=== PATIENT | male | born 1985 | race Caucasian/White ===

== ENCOUNTER 2021-03-06 00:54 | Inpatient (IN) | payer BC ==
[2021-03-06] MEDS ORDERED: Ibuprofen 800 MG TAB ONE (01:13)
[2021-03-06] MEDS ORDERED: Ondansetron PF 4 MG/2 ML Vial IVP PRN (04:43)
[2021-03-06] MEDS ORDERED: Ondansetron ODT 4 MG TAB PO PRN (04:43)
[2021-03-06 05:15] LABS: #Lymphocytes 0.3 thou/uL (1.20-3.40); #Monocytes 0.1 thou/uL (0.11-0.59); #Neutrophils 4.5 thou/uL (1.40-6.50); %Basophils 0.4 % (0.0-1.0); %Eosinophils 0.1 % (0.0-10.0); %Lymphocytes 5.5 % (21.0-51.0); %Neutrophils 92.9 % (42.0-75.0); Mean Corpuscular Hemoglobin 31.3 pg (27.0-31.0); Mean Corpuscular Volume 94.7 fL (78.0-98.0); Mean Platelet Volume 7.4 fL (7.4-10.4); Platelet Count 144 thou/uL (130-400); RBC Distribution Width 12.6 % (11.5-14.5); Red Blood Cell (RBC) Count 4.48 mill/uL (4.70-6.10); White Blood Cell (WBC) Count 4.9 thou/uL (4.8-10.8)
[2021-03-06 05:33] LABS: Lactic Acid 1.7 mmol/L (0.5-2.2)
[2021-03-06 05:36] LABS: Anion Gap 13 mmol/L (10-20); BUN (Urea Nitrogen) 6 mg/dL (8.9-20.6); Calc. Creatinine Clearance 0 mL/min (70-130); Calcium 7.8 mg/dL (7.8-10.44); Carbon Dioxide 23 mmol/L (22-29); Chloride 104 mmol/L (98-107); Glucose 168 mg/dL (70-105); Potassium 3.9 mmol/L (3.5-5.1); Sodium 136 mmol/L (136-145)
[2021-03-06] MEDS: Ascorbic Acid 500 mg Chewable Tablet PO SCH (08:02)
[2021-03-06] MEDS: Cholecalciferol (Vitamin D3) 400 UNITS TAB PO SCH (08:02)
[2021-03-06] MEDS: Enoxaparin Sodium 40 MG/0.4 ML SYRINGE SC SCH ×2 (08:02→20:00)
[2021-03-06] MEDS: Dexamethasone 4 mg/ml Vial SLOW IVP SCH (08:02)
[2021-03-06] MEDS: Zinc Sulfate 220 MG CAP PO SCH (08:02)
[2021-03-06] MEDS ORDERED: Rocuronium Bromide 10 MG/ML (10ML VIAL) ONE (09:05)
[2021-03-06] MEDS ORDERED: Succinylcholine 200 MG/10 ml SYRINGE FS ONE (09:05)
[2021-03-06] MEDS ORDERED: Iopamidol-370 76% 500 ML 1 ML ONE (09:39)
[2021-03-06] MEDS ORDERED: REMDESIVIR 200 MG in Sodium Chloride 0.9% 250 ML 210 ML IV SCH ×2 (11:00→12:45)
[2021-03-06] MEDS: Acetaminophen 325 MG TAB PO PRN ×2 (12:09→16:48)
[2021-03-06] MEDS: ALPRAZolam 0.25 MG TAB PO PRN ×2 (13:02→20:07)
[2021-03-06] MEDS ORDERED: HumaLOG 300 UNITS/3 ML VIAL SC PRN (14:30)
[2021-03-06] MEDS ORDERED: Dextrose 50% Abboject 50 ML SYRINGE SLOW IVP PRN (14:30)
[2021-03-06] MEDS ORDERED: Dextrose 5% in Water 1,000 ML IV PRN (14:30)
[2021-03-06] MEDS ORDERED: GUAIFENESIN SF SOLN 200 MG/10 ML UDCUP PO PRN (17:49)
[2021-03-06] MEDS ORDERED: Ibuprofen 600 MG TAB PO PRN (19:41)
[2021-03-06] MEDS ORDERED: Acetaminophen 500 MG TAB PO PRN (19:42)
[2021-03-06] MEDS ORDERED: Albuterol 200 PUFF (6.7GM INHALER) INH PRN (21:58)
[2021-03-07 04:01] LABS: Hemoglobin A1c 5.5 % (4.0-6.0)
[2021-03-07 05:04] LABS: Actual Bicarbonate (HCO3a) 26.4 mEq/L (22-28); Base Excess (BEa) 0.7 mEq/L (-2.0 to +3.0); CO2 Tension 46.3 mmHg (35.0-45.0); Calcium, Ionized (arterial) 1.08 mmol/L (1.12-1.30); Carboxyhemoglobin (COHb) 0.7 gm% (0.0-3.0); Hemoglobin (Hb) 15.3 g/dL (14.0-18.0); Potassium - ABG Lab 4.19 mmol/L (3.70-5.30); pH, Arterial 7.37 (7.35-7.45)
[2021-03-07 05:06] LABS: O2 Tension (PaO2), arterial 46.9 mmHg (80.0-100.0); Puncture Site LBA
[2021-03-07 05:07] LABS: ALV-art Gradient 608.225 mmHg (0-20)
[2021-03-07] MEDS ORDERED: Fentanyl CADD 100 ML ONE ×2 (05:49→23:15)
[2021-03-07] MEDS ORDERED: Morphine 2 MG/ML VIAL SLOW IVP PRN (06:00)
[2021-03-07] MEDS ORDERED: Propofol BOLUS 1,000 MG/100 ML VIAL IV PRN (06:00)
[2021-03-07] MEDS ORDERED: DISCONTINUE PREVIOUS NARCOTIC PAIN MEDICATIONS AND BENZODIAZEPINES FS SCH (06:00)
[2021-03-07] MEDS ORDERED: Fentanyl BOLUS 250 ML IVPB PRN (06:00)
[2021-03-07] MEDS ORDERED: Propofol 1,000 MG/100 ML VIAL IV ONE (06:08)
[2021-03-07] MEDS ORDERED: Vecuronium 10 MG VIAL ONE ×2 (06:14→07:07)
[2021-03-07] MEDS ORDERED: Sterile Water 10 ML ONE ×2 (07:08→23:17)
[2021-03-07] MEDS: Lorazepam 2 MG/ML VIAL SLOW IVP PRN ×7 (07:13→23:29)
[2021-03-07 07:38] LABS: Actual Bicarbonate (HCO3a) 25.9 mEq/L (22-28); Base Excess (BEa) -0.1 mEq/L (-2.0 to +3.0); CO2 Tension 47.1 mmHg (35.0-45.0); Calcium, Ionized (arterial) 1.03 mmol/L (1.12-1.30); Carboxyhemoglobin (COHb) 0.7 gm% (0.0-3.0); Hemoglobin (Hb) 14.3 g/dL (14.0-18.0); Potassium - ABG Lab 4.02 mmol/L (3.70-5.30); pH, Arterial 7.36 (7.35-7.45)
[2021-03-07 07:48] LABS: Puncture Site LRA
[2021-03-07 07:49] LABS: ALV-art Gradient 599.125 mmHg (0-20)
[2021-03-07] MEDS: Propofol 1,000 MG/100 ML VIAL IV PRN ×5 (08:08→22:27)
[2021-03-07] MEDS: Enoxaparin Sodium 40 MG/0.4 ML SYRINGE SC SCH ×2 (09:22→20:34)
[2021-03-07] MEDS: Pantoprazole 40 MG VIAL IVP SCH (09:22)
[2021-03-07] MEDS: Acetaminophen 650 MG Suppository PR PRN (09:22)
[2021-03-07] MEDS: Cholecalciferol (Vitamin D3) 400 UNITS TAB PO SCH (09:22)
[2021-03-07] MEDS: Ascorbic Acid 500 mg Chewable Tablet PO SCH (09:23)
[2021-03-07] MEDS: Colchicine 0.6 MG TAB PO SCH ×2 (09:24→20:34)
[2021-03-07] MEDS: Zinc Sulfate 220 MG CAP PO SCH (09:24)
[2021-03-07] MEDS: Dexamethasone 4 mg/ml Vial SLOW IVP SCH (09:24)
[2021-03-07] MEDS ORDERED: Dexamethasone 4 mg/ml Vial SLOW IVP SCH (09:45)
[2021-03-07] MEDS ORDERED: Dextrose 50% Abboject 50 ML SYRINGE SLOW IVP PRN (09:52)
[2021-03-07] MEDS ORDERED: Dextrose 5% in Water 1,000 ML IV PRN (09:52)
[2021-03-07] MEDS: Vecuronium 10 MG VIAL IV PRN ×3 (09:54→23:30)
[2021-03-07] MEDS: REMDESIVIR 100 MG in Sodium Chloride 0.9% 250 ML 230 ML IV SCH (10:16)
[2021-03-07 10:21] LABS: #Lymphocytes 0.7 thou/uL (1.20-3.40); #Monocytes 0.2 thou/uL (0.11-0.59); #Neutrophils 5.4 thou/uL (1.40-6.50); %Basophils 0.3 % (0.0-1.0); %Lymphocytes 11.6 % (21.0-51.0); %Monocytes 3.1 % (0.0-10.0); Hemoglobin 13.4 g/dL (14.0-18.0); Mean Corpuscular HGB CONC 32.3 g/dL (32.0-36.0); Mean Corpuscular Hemoglobin 30.2 pg (27.0-31.0); Mean Corpuscular Volume 93.7 fL (78.0-98.0); Mean Platelet Volume 7.4 fL (7.4-10.4); Platelet Count 193 thou/uL (130-400); RBC Distribution Width 12.6 % (11.5-14.5); Red Blood Cell (RBC) Count 4.44 mill/uL (4.70-6.10); White Blood Cell (WBC) Count 6.4 thou/uL (4.8-10.8)
[2021-03-07 11:00] LABS: ALT (SGPT) 88 U/L (8-55); AST (SGOT) 169 U/L (5-34); Albumin 3.3 g/dL (3.5-5.0); Alkaline Phosphatase 55 U/L (40-110); Anion Gap 13 mmol/L (10-20); BUN (Urea Nitrogen) 17 mg/dL (8.9-20.6); Bilirubin, Total 0.8 mg/dL (0.2-1.2); Calc. Creatinine Clearance 222 mL/min (70-130); Calcium 7.8 mg/dL (7.8-10.44); Carbon Dioxide 28 mmol/L (22-29); Chloride 100 mmol/L (98-107); Glucose 131 mg/dL (70-105); Protein, Total 6.3 g/dL (6.0-8.3); Sodium 137 mmol/L (136-145)
[2021-03-07] MEDS: Fentanyl CADD 100 ML IV SCH (23:29)
[2021-03-07] MEDS: Insulin Regular 300 UNITS/3 ML VIAL SC PRN (23:30)
[2021-03-08] MEDS: Propofol 1,000 MG/100 ML VIAL IV PRN ×6 (01:45→22:00)
[2021-03-08 04:55] LABS: #Lymphocytes 0.5 thou/uL (1.20-3.40); #Monocytes 0.2 thou/uL (0.11-0.59); #Neutrophils 4.8 thou/uL (1.40-6.50); %Eosinophils 0.1 % (0.0-10.0); %Lymphocytes 8.3 % (21.0-51.0); %Monocytes 3.5 % (0.0-10.0); %Neutrophils 88.1 % (42.0-75.0); Hemoglobin 13.2 g/dL (14.0-18.0); Mean Corpuscular HGB CONC 32.4 g/dL (32.0-36.0); Mean Corpuscular Hemoglobin 30.4 pg (27.0-31.0); Mean Corpuscular Volume 93.7 fL (78.0-98.0); Mean Platelet Volume 7.7 fL (7.4-10.4); Platelet Count 204 thou/uL (130-400); RBC Distribution Width 12.3 % (11.5-14.5); Red Blood Cell (RBC) Count 4.33 mill/uL (4.70-6.10); White Blood Cell (WBC) Count 5.4 thou/uL (4.8-10.8)
[2021-03-08 05:18] LABS: ALT (SGPT) 75 U/L (8-55); AST (SGOT) 76 U/L (5-34); Albumin 3.2 g/dL (3.5-5.0); Alkaline Phosphatase 50 U/L (40-110); Anion Gap 12 mmol/L (10-20); BUN (Urea Nitrogen) 15 mg/dL (8.9-20.6); Bilirubin, Total 0.8 mg/dL (0.2-1.2); CRP (Inflammatory) 22.81 mg/dL (= or < 0.5); Calc. Creatinine Clearance 267 mL/min (70-130); Calcium 8.1 mg/dL (7.8-10.44); Carbon Dioxide 29 mmol/L (22-29); Chloride 103 mmol/L (98-107); Globulin 3.1 g/dL (2.4-3.5); Glucose 216 mg/dL (70-105); Protein, Total 6.3 g/dL (6.0-8.3); Sodium 140 mmol/L (136-145)
[2021-03-08] MEDS ORDERED: Sterile Water 10 ML ONE ×2 (05:36→21:58)
[2021-03-08] MEDS: Vecuronium 10 MG VIAL IV PRN ×6 (05:40→22:01)
[2021-03-08] MEDS: Lorazepam 2 MG/ML VIAL SLOW IVP PRN ×6 (05:41→22:00)
[2021-03-08] MEDS: Insulin Regular 300 UNITS/3 ML VIAL SC PRN ×4 (05:42→22:38)
[2021-03-08 07:30] LABS: Actual Bicarbonate (HCO3a) 23.1 mEq/L (22-28); CO2 Tension 27.7 mmHg (35.0-45.0); Calcium, Ionized (arterial) 1.07 mmol/L (1.12-1.30); Carboxyhemoglobin (COHb) 0.5 gm% (0.0-3.0); O2 Tension (PaO2), arterial 68.1 mmHg (80.0-100.0); Potassium - ABG Lab 3.86 mmol/L (3.70-5.30); pH, Arterial 7.54 (7.35-7.45)
[2021-03-08 08:03] LABS: ALV-art Gradient 253.775 mmHg (0-20); Puncture Site RRA
[2021-03-08] MEDS ORDERED: Aspirin 81 mg Enteric Coated Tablet PER TUBE SCH (09:00)
[2021-03-08] MEDS: Pantoprazole 40 MG VIAL IVP SCH (09:01)
[2021-03-08] MEDS: Enoxaparin Sodium 40 MG/0.4 ML SYRINGE SC SCH ×2 (09:01→20:12)
[2021-03-08] MEDS: Dexamethasone 4 mg/ml Vial SLOW IVP SCH (09:02)
[2021-03-08] MEDS: Ascorbic Acid 500 mg Chewable Tablet PO SCH (09:02)
[2021-03-08] MEDS: Colchicine 0.6 MG TAB PO SCH ×2 (09:03→20:12)
[2021-03-08] MEDS: Zinc Sulfate 220 MG CAP PO SCH (09:03)
[2021-03-08] MEDS: Cholecalciferol (Vitamin D3) 400 UNITS TAB PO SCH (09:03)
[2021-03-08] MEDS: Furosemide 40 MG/4 ML VIAL SLOW IVP SCH (09:03)
[2021-03-08] MEDS: REMDESIVIR 100 MG in Sodium Chloride 0.9% 250 ML 230 ML IV SCH (11:35)
[2021-03-08] MEDS ORDERED: Fentanyl CADD 100 ML ONE (17:23)
[2021-03-08] MEDS: Fentanyl CADD 100 ML IV SCH (17:41)
[2021-03-08] MEDS: Lantus 1000 UNITS/10 ML VIAL SC SCH (22:37)
[2021-03-09] MEDS: Lorazepam 2 MG/ML VIAL SLOW IVP PRN ×6 (01:48→16:35)
[2021-03-09] MEDS: Propofol 1,000 MG/100 ML VIAL IV PRN ×3 (02:44→16:35)
[2021-03-09] MEDS: Vecuronium 10 MG VIAL IV PRN ×6 (02:51→21:40)
[2021-03-09 04:49] LABS: ALT (SGPT) 73 U/L (8-55); AST (SGOT) 58 U/L (5-34); Albumin 3.3 g/dL (3.5-5.0); Alkaline Phosphatase 56 U/L (40-110); Anion Gap 12 mmol/L (10-20); BUN (Urea Nitrogen) 20 mg/dL (8.9-20.6); Bilirubin, Total 0.7 mg/dL (0.2-1.2); CRP (Inflammatory) 12.49 mg/dL (= or < 0.5); Calc. Creatinine Clearance 307 mL/min (70-130); Calcium 8.1 mg/dL (7.8-10.44); Carbon Dioxide 25 mmol/L (22-29); Chloride 106 mmol/L (98-107); Globulin 3.1 g/dL (2.4-3.5); Glucose 193 mg/dL (70-105); Potassium 3.8 mmol/L (3.5-5.1); Protein, Total 6.4 g/dL (6.0-8.3); Sodium 139 mmol/L (136-145)
[2021-03-09 05:08] LABS: Band 5 % (5-11); Hemoglobin 13.3 g/dL (14.0-18.0); Lymphocytes 5 % (21-51); MDiff Complete? YES; Mean Corpuscular HGB CONC 32.3 g/dL (32.0-36.0); Mean Corpuscular Hemoglobin 30.4 pg (27.0-31.0); Mean Corpuscular Volume 94.3 fL (78.0-98.0); Mean Platelet Volume 8.1 fL (7.4-10.4); Monocytes 6 % (0-10); Neutrophil 83 % (42-75); Platelet Count 282 thou/uL (130-400); Platelet Morphology Comment Appears Adequate; RBC Distribution Width 12.6 % (11.5-14.5); RBC Morphology Normal; Reactive Lymphocytes 1 % (0-10); Red Blood Cell (RBC) Count 4.36 mill/uL (4.70-6.10); White Blood Cell (WBC) Count 7.3 thou/uL (4.8-10.8)
[2021-03-09] MEDS: Insulin Regular 300 UNITS/3 ML VIAL SC PRN ×4 (06:40→22:03)
[2021-03-09] MEDS ORDERED: Sterile Water 10 ML ONE (06:48)
[2021-03-09 07:03] LABS: Actual Bicarbonate (HCO3a) 23.7 mEq/L (22-28); Base Excess (BEa) 2.7 mEq/L (-2.0 to +3.0); CO2 Tension 27.1 mmHg (35.0-45.0); Calcium, Ionized (arterial) 1.07 mmol/L (1.12-1.30); Carboxyhemoglobin (COHb) 0.3 gm% (0.0-3.0); Hemoglobin (Hb) 14.1 g/dL (14.0-18.0)
[2021-03-09 07:11] LABS: pH, Arterial 7.56 (7.35-7.45)
[2021-03-09 07:12] LABS: O2 Tension (PaO2), arterial 57.8 mmHg (80.0-100.0); Puncture Site LRA
[2021-03-09 07:13] LABS: ALV-art Gradient 264.825 mmHg (0-20)
[2021-03-09] MEDS: Zinc Sulfate 220 MG CAP PO SCH (09:21)
[2021-03-09] MEDS: Enoxaparin Sodium 40 MG/0.4 ML SYRINGE SC SCH ×2 (09:21→22:02)
[2021-03-09] MEDS: Aspirin Chewable 81 MG TAB PER TUBE SCH (09:21)
[2021-03-09] MEDS: Colchicine 0.6 MG TAB PO SCH ×2 (09:21→22:02)
[2021-03-09] MEDS: Ascorbic Acid 500 mg Chewable Tablet PO SCH (09:21)
[2021-03-09] MEDS: Cholecalciferol (Vitamin D3) 400 UNITS TAB PO SCH (09:21)
[2021-03-09] MEDS: Furosemide 40 MG/4 ML VIAL SLOW IVP SCH (09:21)
[2021-03-09] MEDS: Pantoprazole 40 MG GRANULES PACKET FS SCH (09:21)
[2021-03-09] MEDS: Dexamethasone 4 mg/ml Vial SLOW IVP SCH (09:22)
[2021-03-09] MEDS ORDERED: Fentanyl CADD 100 ML ONE (10:27)
[2021-03-09] MEDS: Fentanyl CADD 100 ML IV SCH (10:31)
[2021-03-09] MEDS: REMDESIVIR 100 MG in Sodium Chloride 0.9% 250 ML 230 ML IV SCH (11:05)
[2021-03-09] MEDS: Lantus 1000 UNITS/10 ML VIAL SC SCH (22:03)
[2021-03-09] MEDS ORDERED: Sodium Bicarbonate Tab 325 MG TAB PER TUBE PRN (22:30)
[2021-03-09] MEDS ORDERED: Pancrelipase DR 12,000 1 CAP FS PRN (22:30)
[2021-03-10] MEDS: Lorazepam 2 MG/ML VIAL SLOW IVP PRN ×5 (00:34→23:16)
[2021-03-10] MEDS: Vecuronium 10 MG VIAL IV PRN ×6 (00:34→23:16)
[2021-03-10] MEDS: Propofol 1,000 MG/100 ML VIAL IV PRN ×7 (01:19→21:55)
[2021-03-10] MEDS ORDERED: Fentanyl CADD 100 ML ONE ×2 (01:32→16:06)
[2021-03-10] MEDS: Fentanyl CADD 100 ML IV SCH (01:33)
[2021-03-10] MEDS: Insulin Regular 300 UNITS/3 ML VIAL SC PRN ×4 (03:52→22:09)
[2021-03-10 04:30] LABS: ALT (SGPT) 83 U/L (8-55); AST (SGOT) 51 U/L (5-34); Albumin 3.3 g/dL (3.5-5.0); Alkaline Phosphatase 51 U/L (40-110); Anion Gap 12 mmol/L (10-20); BUN (Urea Nitrogen) 29 mg/dL (8.9-20.6); Bilirubin, Total 0.7 mg/dL (0.2-1.2); CRP (Inflammatory) 5.81 mg/dL (= or < 0.5); Calc. Creatinine Clearance 282 mL/min (70-130); Carbon Dioxide 27 mmol/L (22-29); Chloride 106 mmol/L (98-107); Globulin 3.2 g/dL (2.4-3.5); Glucose 190 mg/dL (70-105); Potassium 4.1 mmol/L (3.5-5.1); Protein, Total 6.5 g/dL (6.0-8.3); Sodium 141 mmol/L (136-145)
[2021-03-10 04:50] LABS: Band 3 % (5-11); Hemoglobin 13.8 g/dL (14.0-18.0); Hypochromia SLIGHT = 6-15 cells (100X) (0-5/hpf); Lymphocytes 12 % (21-51); MDiff Complete? YES; Mean Corpuscular HGB CONC 33.2 g/dL (32.0-36.0); Mean Corpuscular Hemoglobin 31.3 pg (27.0-31.0); Mean Corpuscular Volume 94.3 fL (78.0-98.0); Mean Platelet Volume 7.7 fL (7.4-10.4); Monocytes 8 % (0-10); Neutrophil 77 % (42-75); Platelet Count 359 thou/uL (130-400); Platelet Morphology Comment Appears Adequate; RBC Distribution Width 12.6 % (11.5-14.5); Red Blood Cell (RBC) Count 4.42 mill/uL (4.70-6.10); White Blood Cell (WBC) Count 9.7 thou/uL (4.8-10.8)
[2021-03-10] MEDS: Furosemide 40 MG/4 ML VIAL SLOW IVP SCH (07:44)
[2021-03-10] MEDS: Zinc Sulfate 220 MG CAP PO SCH (07:45)
[2021-03-10] MEDS: Aspirin Chewable 81 MG TAB PER TUBE SCH (07:46)
[2021-03-10] MEDS: Pantoprazole 40 MG GRANULES PACKET FS SCH (07:46)
[2021-03-10] MEDS: Cholecalciferol (Vitamin D3) 400 UNITS TAB PO SCH (07:46)
[2021-03-10] MEDS: Colchicine 0.6 MG TAB PO SCH ×2 (07:46→21:47)
[2021-03-10] MEDS: Enoxaparin Sodium 40 MG/0.4 ML SYRINGE SC SCH ×2 (07:47→21:46)
[2021-03-10] MEDS: Ascorbic Acid 500 mg Chewable Tablet PO SCH (08:38)
[2021-03-10] MEDS: Dexamethasone 4 mg/ml Vial SLOW IVP SCH (08:39)
[2021-03-10] MEDS ORDERED: Succinylcholine 200 MG/10 ml SYRINGE FS SCH (10:15)
[2021-03-10] MEDS: REMDESIVIR 100 MG in Sodium Chloride 0.9% 250 ML 230 ML IV SCH (10:37)
[2021-03-10] MEDS: Acetaminophen 650 MG/20.3 ML UDCUP PO PRN (16:10)
[2021-03-10] MEDS: Lantus 1000 UNITS/10 ML VIAL SC SCH (21:48)
[2021-03-10] MEDS ORDERED: Sterile Water 10 ML ONE (23:09)
[2021-03-11] MEDS: Propofol 1,000 MG/100 ML VIAL IV PRN ×6 (00:43→17:35)
[2021-03-11 04:48] LABS: ALT (SGPT) 134 U/L (8-55); AST (SGOT) 71 U/L (5-34); Albumin 3.3 g/dL (3.5-5.0); Alkaline Phosphatase 44 U/L (40-110); Anion Gap 9 mmol/L (10-20); BUN (Urea Nitrogen) 25 mg/dL (8.9-20.6); CRP (Inflammatory) 3.01 mg/dL (= or < 0.5); Calc. Creatinine Clearance 211 mL/min (70-130); Carbon Dioxide 32 mmol/L (22-29); Chloride 106 mmol/L (98-107); Glucose 169 mg/dL (70-105); Potassium 4.3 mmol/L (3.5-5.1); Protein, Total 6.3 g/dL (6.0-8.3); Sodium 143 mmol/L (136-145)
[2021-03-11 04:53] LABS: Band 3 % (5-11); Hemoglobin 13.4 g/dL (14.0-18.0); Lymphocytes 10 % (21-51); MDiff Complete? YES; Mean Corpuscular HGB CONC 32.9 g/dL (32.0-36.0); Mean Corpuscular Hemoglobin 31.2 pg (27.0-31.0); Mean Corpuscular Volume 95.1 fL (78.0-98.0); Mean Platelet Volume 7.4 fL (7.4-10.4); Monocytes 9 % (0-10); Neutrophil 73 % (42-75); Platelet Count 366 thou/uL (130-400); Platelet Morphology Comment Appears Adequate; RBC Distribution Width 12.6 % (11.5-14.5); RBC Morphology Normal; Reactive Lymphocytes 5 % (0-10); White Blood Cell (WBC) Count 8.4 thou/uL (4.8-10.8)
[2021-03-11] MEDS: Insulin Regular 300 UNITS/3 ML VIAL SC PRN ×2 (06:12→16:42)
[2021-03-11] MEDS: Ascorbic Acid 500 mg Chewable Tablet PO SCH (07:33)
[2021-03-11 07:35] LABS: Base Excess (BEa) 4.6 mEq/L (-2.0 to +3.0); CO2 Tension 37.4 mmHg (35.0-45.0); Calcium, Ionized (arterial) 1.09 mmol/L (1.12-1.30); Carboxyhemoglobin (COHb) 0.4 gm% (0.0-3.0); Hemoglobin (Hb) 14.2 g/dL (14.0-18.0); O2 Tension (PaO2), arterial 77.1 mmHg (80.0-100.0); Potassium - ABG Lab 4.24 mmol/L (3.70-5.30); pH, Arterial 7.49 (7.35-7.45)
[2021-03-11 07:39] LABS: Puncture Site RRA
[2021-03-11] MEDS: Aspirin Chewable 81 MG TAB PER TUBE SCH (07:40)
[2021-03-11] MEDS: Cholecalciferol (Vitamin D3) 400 UNITS TAB PO SCH (07:40)
[2021-03-11] MEDS: Colchicine 0.6 MG TAB PO SCH ×2 (07:40→20:36)
[2021-03-11] MEDS: Dexamethasone 4 mg/ml Vial SLOW IVP SCH (07:40)
[2021-03-11] MEDS: Pantoprazole 40 MG GRANULES PACKET PER TUBE SCH (07:41)
[2021-03-11] MEDS: Enoxaparin Sodium 40 MG/0.4 ML SYRINGE SC SCH ×2 (07:41→20:36)
[2021-03-11] MEDS: Zinc Sulfate 220 MG CAP PO SCH (07:42)
[2021-03-11] MEDS: Lorazepam 2 MG/ML VIAL SLOW IVP PRN ×2 (07:43→17:36)
[2021-03-11] MEDS ORDERED: Fentanyl CADD 100 ML ONE (08:17)
[2021-03-11] MEDS: Fentanyl CADD 100 ML IV SCH (08:19)
[2021-03-11] MEDS: Dexmedetomidine 1,000 MCG in Sodium Chloride 0.9% 250 ML 240 ML IVPB PRN ×2 (11:24→17:56)
[2021-03-11] MEDS: Acetaminophen 650 MG/20.3 ML UDCUP PO PRN (11:50)
[2021-03-11] MEDS ORDERED: hydrALAZINE 20 MG/ML VIAL ONE (17:32)
[2021-03-11] MEDS: Acetaminophen 650 MG Suppository PR PRN (17:35)
[2021-03-11] MEDS: hydrALAZINE 20 MG/ML VIAL SLOW IVP PRN ×2 (17:37→21:05)
[2021-03-11] MEDS: Lantus 1000 UNITS/10 ML VIAL SC SCH (20:36)
[2021-03-11] MEDS ORDERED: hydrALAZINE 20 MG/ML VIAL SLOW IVP PRN (23:38)
[2021-03-12] MEDS: Dexmedetomidine 1,000 MCG in Sodium Chloride 0.9% 250 ML 240 ML IVPB PRN ×5 (00:01→21:59)
[2021-03-12] MEDS: Acetaminophen 650 MG/20.3 ML UDCUP PO PRN (01:59)
[2021-03-12] MEDS: Propofol 1,000 MG/100 ML VIAL IV PRN ×3 (04:19→22:26)
[2021-03-12 06:55] LABS: Hemoglobin 13.7 g/dL (14.0-18.0); Mean Corpuscular HGB CONC 31.4 g/dL (32.0-36.0); Mean Corpuscular Hemoglobin 29.8 pg (27.0-31.0); Mean Platelet Volume 7.2 fL (7.4-10.4); Platelet Count 347 thou/uL (130-400); RBC Distribution Width 12.3 % (11.5-14.5); White Blood Cell (WBC) Count 9.2 thou/uL (4.8-10.8)
[2021-03-12 07:09] LABS: ALT (SGPT) 140 U/L (8-55); AST (SGOT) 44 U/L (5-34); Albumin 3.2 g/dL (3.5-5.0); Alkaline Phosphatase 39 U/L (40-110); Anion Gap 9 mmol/L (10-20); BUN (Urea Nitrogen) 24 mg/dL (8.9-20.6); CRP (Inflammatory) 1.63 mg/dL (= or < 0.5); Calc. Creatinine Clearance 263 mL/min (70-130); Calcium 8.3 mg/dL (7.8-10.44); Carbon Dioxide 28 mmol/L (22-29); Chloride 107 mmol/L (98-107); Glucose 144 mg/dL (70-105); Potassium 4.2 mmol/L (3.5-5.1); Protein, Total 6.2 g/dL (6.0-8.3); Sodium 140 mmol/L (136-145)
[2021-03-12 07:23] LABS: Actual Bicarbonate (HCO3a) 27.3 mEq/L (22-28); Base Excess (BEa) 3.4 mEq/L (-2.0 to +3.0); CO2 Tension 39.4 mmHg (35.0-45.0); Calcium, Ionized (arterial) 1.15 mmol/L (1.12-1.30); Carboxyhemoglobin (COHb) 0.3 gm% (0.0-3.0); Hemoglobin (Hb) 14.2 g/dL (14.0-18.0); O2 Tension (PaO2), arterial 78.7 mmHg (80.0-100.0); Potassium - ABG Lab 4.23 mmol/L (3.70-5.30); pH, Arterial 7.46 (7.35-7.45)
[2021-03-12] MEDS: Ascorbic Acid 500 mg Chewable Tablet PO SCH (07:34)
[2021-03-12] MEDS: Zinc Sulfate 220 MG CAP PO SCH (07:34)
[2021-03-12] MEDS: Pantoprazole 40 MG GRANULES PACKET PER TUBE SCH (07:35)
[2021-03-12] MEDS: Colchicine 0.6 MG TAB PO SCH ×2 (07:35→21:19)
[2021-03-12] MEDS: Aspirin Chewable 81 MG TAB PER TUBE SCH (07:35)
[2021-03-12] MEDS: Enoxaparin Sodium 40 MG/0.4 ML SYRINGE SC SCH ×2 (07:35→21:19)
[2021-03-12] MEDS: Cholecalciferol (Vitamin D3) 400 UNITS TAB PO SCH (07:35)
[2021-03-12] MEDS: Dexamethasone 4 mg/ml Vial SLOW IVP SCH (07:35)
[2021-03-12 07:36] LABS: Puncture Site LRA
[2021-03-12 07:36] LABS: Band 2 % (5-11); Lymphocytes 13 % (21-51); MDiff Complete? YES; Monocytes 14 % (0-10); Neutrophil 67 % (42-75); Platelet Morphology Comment Appears Adequate; Polychromasia SLIGHT = 2-3 cells (100X) (0-2/hpf); Reactive Lymphocytes 4 % (0-10)
[2021-03-12] MEDS: Lorazepam 2 MG/ML VIAL SLOW IVP PRN ×2 (07:40→11:15)
[2021-03-12] MEDS ORDERED: Fentanyl CADD 100 ML ONE (16:29)
[2021-03-12] MEDS: VANCOMYCIN 2 GRAM/400 ML BAG 2 GM in Premix Bag 1 BAG IVPB SCH (19:30)
[2021-03-12] MEDS ORDERED: Vancomycin HCl 1.25 GM in Sodium Chloride 0.9% 250 ML 250 ML IVPB SCH (21:00)
[2021-03-12] MEDS: Lantus 1000 UNITS/10 ML VIAL SC SCH (21:19)
[2021-03-12] MEDS ORDERED: MEROPENEM 1 GM/50 ML 1 GM in Premix Bag 1 BAG IVPB SCH (22:00)
[2021-03-13] MEDS: VANCOMYCIN 2 GRAM/400 ML BAG 2 GM in Premix Bag 1 BAG IVPB SCH ×3 (03:40→21:34)
[2021-03-13] MEDS: Propofol 1,000 MG/100 ML VIAL IV PRN ×4 (03:40→23:46)
[2021-03-13] MEDS: Dexmedetomidine 1,000 MCG in Sodium Chloride 0.9% 250 ML 240 ML IVPB PRN ×4 (04:38→21:32)
[2021-03-13] MEDS: MEROPENEM 1 GM/50 ML 1 GM in Premix Bag 1 BAG IVPB SCH ×3 (06:12→21:35)
[2021-03-13 08:29] LABS: #Eosinphils 0.1 thou/uL (0.0-0.7); #Lymphocytes 1.6 thou/uL (1.20-3.40); #Monocytes 1.1 thou/uL (0.11-0.59); #Neutrophils 7.6 thou/uL (1.40-6.50); %Eosinophils 0.9 % (0.0-10.0); %Lymphocytes 15.2 % (21.0-51.0); %Monocytes 10.8 % (0.0-10.0); %Neutrophils 73.1 % (42.0-75.0); Hemoglobin 13.6 g/dL (14.0-18.0); Mean Corpuscular HGB CONC 32.9 g/dL (32.0-36.0); Mean Corpuscular Hemoglobin 30.8 pg (27.0-31.0); Mean Corpuscular Volume 93.7 fL (78.0-98.0); Mean Platelet Volume 7.1 fL (7.4-10.4); Platelet Count 336 thou/uL (130-400); RBC Distribution Width 12.2 % (11.5-14.5); Red Blood Cell (RBC) Count 4.41 mill/uL (4.70-6.10); White Blood Cell (WBC) Count 10.4 thou/uL (4.8-10.8)
[2021-03-13 08:49] LABS: ALT (SGPT) 106 U/L (8-55); AST (SGOT) 26 U/L (5-34); Albumin 3.3 g/dL (3.5-5.0); Alkaline Phosphatase 40 U/L (40-110); Anion Gap 11 mmol/L (10-20); BUN (Urea Nitrogen) 22 mg/dL (8.9-20.6); Bilirubin, Total 1.1 mg/dL (0.2-1.2); Calc. Creatinine Clearance 273 mL/min (70-130); Calcium 8.4 mg/dL (7.8-10.44); Carbon Dioxide 25 mmol/L (22-29); Chloride 105 mmol/L (98-107); Glucose 131 mg/dL (70-105); Potassium 4.2 mmol/L (3.5-5.1); Protein, Total 6.3 g/dL (6.0-8.3); Sodium 137 mmol/L (136-145)
[2021-03-13] MEDS: Ascorbic Acid 500 mg Chewable Tablet PO SCH (09:19)
[2021-03-13] MEDS: Colchicine 0.6 MG TAB PO SCH ×2 (09:19→21:41)
[2021-03-13] MEDS: Aspirin Chewable 81 MG TAB PER TUBE SCH (09:19)
[2021-03-13] MEDS: Cholecalciferol (Vitamin D3) 400 UNITS TAB PO SCH (09:19)
[2021-03-13] MEDS: Dexamethasone 4 mg/ml Vial SLOW IVP SCH (09:19)
[2021-03-13] MEDS: Pantoprazole 40 MG GRANULES PACKET PER TUBE SCH (09:20)
[2021-03-13] MEDS: Zinc Sulfate 220 MG CAP PO SCH (09:20)
[2021-03-13] MEDS: Enoxaparin Sodium 40 MG/0.4 ML SYRINGE SC SCH ×2 (09:20→21:36)
[2021-03-13] MEDS: Acetaminophen 650 MG/20.3 ML UDCUP PO PRN ×2 (09:21→16:17)
[2021-03-13] MEDS: Insulin Regular 300 UNITS/3 ML VIAL SC PRN ×2 (16:30→22:51)
[2021-03-13 18:13] LABS: CMV DNA-PCR Test Negative (Negative)
[2021-03-13 19:36] LABS: Vancomycin, Trough 9.7 ug/mL
[2021-03-13] MEDS: Lantus 1000 UNITS/10 ML VIAL SC SCH (21:37)
[2021-03-13] MEDS: Fentanyl CADD 100 ML IV SCH (23:26)
[2021-03-14] MEDS: Dexmedetomidine 1,000 MCG in Sodium Chloride 0.9% 250 ML 240 ML IVPB PRN ×4 (00:36→21:20)
[2021-03-14] MEDS: Propofol 1,000 MG/100 ML VIAL IV PRN ×4 (05:09→20:23)
[2021-03-14] MEDS: VANCOMYCIN 2 GRAM/400 ML BAG 2 GM in Premix Bag 1 BAG IVPB SCH ×3 (05:10→21:22)
[2021-03-14 05:59] LABS: #Lymphocytes 0.9 thou/uL (1.20-3.40); #Monocytes 0.6 thou/uL (0.11-0.59); #Neutrophils 8.8 thou/uL (1.40-6.50); %Basophils 0.1 % (0.0-1.0); %Eosinophils 0.5 % (0.0-10.0); %Lymphocytes 8.4 % (21.0-51.0); %Monocytes 5.6 % (0.0-10.0); %Neutrophils 85.4 % (42.0-75.0); Hemoglobin 13.6 g/dL (14.0-18.0); Mean Corpuscular HGB CONC 34.1 g/dL (32.0-36.0); Mean Corpuscular Hemoglobin 32.1 pg (27.0-31.0); Mean Corpuscular Volume 94.1 fL (78.0-98.0); Platelet Count 221 thou/uL (130-400); Platelet Morphology Comment Appears Adequate; RBC Distribution Width 12.8 % (11.5-14.5); Red Blood Cell (RBC) Count 4.24 mill/uL (4.70-6.10); White Blood Cell (WBC) Count 10.3 thou/uL (4.8-10.8)
[2021-03-14] MEDS: MEROPENEM 1 GM/50 ML 1 GM in Premix Bag 1 BAG IVPB SCH ×2 (06:55→15:39)
[2021-03-14] MEDS: Ascorbic Acid 500 mg Chewable Tablet PO SCH (08:08)
[2021-03-14] MEDS: Cholecalciferol (Vitamin D3) 400 UNITS TAB PO SCH (08:08)
[2021-03-14] MEDS: Aspirin Chewable 81 MG TAB PER TUBE SCH (08:08)
[2021-03-14] MEDS: Colchicine 0.6 MG TAB PO SCH ×2 (08:09→21:22)
[2021-03-14] MEDS: Zinc Sulfate 220 MG CAP PO SCH (08:09)
[2021-03-14] MEDS: Pantoprazole 40 MG GRANULES PACKET PER TUBE SCH (08:09)
[2021-03-14] MEDS: Dexamethasone 4 mg/ml Vial SLOW IVP SCH (08:09)
[2021-03-14] MEDS: Enoxaparin Sodium 40 MG/0.4 ML SYRINGE SC SCH ×2 (08:10→21:22)
[2021-03-14 08:40] LABS: Anion Gap 9 mmol/L (10-20); BUN (Urea Nitrogen) 22 mg/dL (8.9-20.6); Calc. Creatinine Clearance 0 mL/min (70-130); Calcium 8.5 mg/dL (7.8-10.44); Carbon Dioxide 29 mmol/L (22-29); Chloride 104 mmol/L (98-107); Glucose 134 mg/dL (70-105); Magnesium 2.3 mg/dL (1.6-2.6); Phosphorus 3.2 mg/dL (2.3-4.7); Potassium 4.4 mmol/L (3.5-5.1); Sodium 138 mmol/L (136-145)
[2021-03-14 08:44] LABS: Vancomycin, Trough 33.4 ug/mL
[2021-03-14] MEDS: Vecuronium 10 MG VIAL IV PRN (09:30)
[2021-03-14] MEDS: Lorazepam 2 MG/ML VIAL SLOW IVP PRN (20:23)
[2021-03-14 21:04] LABS: Vancomycin, Trough 12.6 ug/mL
[2021-03-14] MEDS: Lantus 1000 UNITS/10 ML VIAL SC SCH (21:22)
[2021-03-14] MEDS ORDERED: Fentanyl CADD 100 ML ONE (23:47)
[2021-03-15] MEDS: MEROPENEM 1 GM/50 ML 1 GM in Premix Bag 1 BAG IVPB SCH ×4 (01:12→21:03)
[2021-03-15] MEDS: Dexmedetomidine 1,000 MCG in Sodium Chloride 0.9% 250 ML 240 ML IVPB PRN ×2 (02:07→22:10)
[2021-03-15] MEDS: VANCOMYCIN 2 GRAM/400 ML BAG 2 GM in Premix Bag 1 BAG IVPB SCH ×3 (04:14→20:28)
[2021-03-15] MEDS: Propofol 1,000 MG/100 ML VIAL IV PRN ×4 (04:15→21:06)
[2021-03-15 04:22] LABS: #Basophils 0.1 thou/uL (0.0-0.2); #Eosinphils 0.1 thou/uL (0.0-0.7); #Neutrophils 9.1 thou/uL (1.40-6.50); %Basophils 0.5 % (0.0-1.0); %Eosinophils 0.6 % (0.0-10.0); %Lymphocytes 8.5 % (21.0-51.0); %Monocytes 9.2 % (0.0-10.0); %Neutrophils 81.3 % (42.0-75.0); Mean Corpuscular HGB CONC 34.1 g/dL (32.0-36.0); Mean Corpuscular Hemoglobin 31.9 pg (27.0-31.0); Mean Corpuscular Volume 93.7 fL (78.0-98.0); Platelet Count 285 thou/uL (130-400); RBC Distribution Width 12.4 % (11.5-14.5); Red Blood Cell (RBC) Count 4.38 mill/uL (4.70-6.10); White Blood Cell (WBC) Count 11.2 thou/uL (4.8-10.8)
[2021-03-15 04:47] LABS: Anion Gap 12 mmol/L (10-20); BUN (Urea Nitrogen) 19 mg/dL (8.9-20.6); Calc. Creatinine Clearance 0 mL/min (70-130); Calcium 8.6 mg/dL (7.8-10.44); Carbon Dioxide 27 mmol/L (22-29); Chloride 104 mmol/L (98-107); Glucose 152 mg/dL (70-105); Magnesium 2.3 mg/dL (1.6-2.6); Phosphorus 3.3 mg/dL (2.3-4.7); Sodium 139 mmol/L (136-145)
[2021-03-15] MEDS: Vecuronium 10 MG VIAL IV PRN (07:20)
[2021-03-15] MEDS: Cholecalciferol (Vitamin D3) 400 UNITS TAB PO SCH (08:33)
[2021-03-15] MEDS: Zinc Sulfate 220 MG CAP PO SCH (08:33)
[2021-03-15] MEDS: Aspirin Chewable 81 MG TAB PER TUBE SCH (08:33)
[2021-03-15] MEDS: Colchicine 0.6 MG TAB PO SCH ×2 (08:33→20:28)
[2021-03-15] MEDS: Ascorbic Acid 500 mg Chewable Tablet PO SCH (08:33)
[2021-03-15] MEDS: Dexamethasone 4 mg/ml Vial SLOW IVP SCH (08:34)
[2021-03-15] MEDS: Enoxaparin Sodium 40 MG/0.4 ML SYRINGE SC SCH ×2 (08:34→20:28)
[2021-03-15] MEDS: Pantoprazole 40 MG GRANULES PACKET PER TUBE SCH (08:34)
[2021-03-15] MEDS ORDERED: Fentanyl CADD 100 ML ONE (18:22)
[2021-03-15] MEDS: Fentanyl CADD 100 ML IV SCH (18:49)
[2021-03-15] MEDS: Lorazepam 2 MG/ML VIAL SLOW IVP PRN ×2 (19:06→23:23)
[2021-03-15] MEDS: Lantus 1000 UNITS/10 ML VIAL SC SCH (20:29)
[2021-03-16] MEDS: Propofol 1,000 MG/100 ML VIAL IV PRN ×6 (00:52→21:21)
[2021-03-16] MEDS: VANCOMYCIN 2 GRAM/400 ML BAG 2 GM in Premix Bag 1 BAG IVPB SCH ×2 (03:20→11:18)
[2021-03-16] MEDS: Dexmedetomidine 1,000 MCG in Sodium Chloride 0.9% 250 ML 240 ML IVPB PRN ×4 (03:20→21:21)
[2021-03-16 04:19] LABS: #Eosinphils 0.1 thou/uL (0.0-0.7); #Lymphocytes 1.4 thou/uL (1.20-3.40); #Monocytes 1.1 thou/uL (0.11-0.59); #Neutrophils 12.6 thou/uL (1.40-6.50); %Basophils 0.1 % (0.0-1.0); %Eosinophils 0.5 % (0.0-10.0); %Lymphocytes 8.9 % (21.0-51.0); %Monocytes 7.3 % (0.0-10.0); %Neutrophils 83.2 % (42.0-75.0); Hemoglobin 13.7 g/dL (14.0-18.0); Mean Corpuscular HGB CONC 33.1 g/dL (32.0-36.0); Mean Corpuscular Hemoglobin 31.2 pg (27.0-31.0); Mean Corpuscular Volume 94.2 fL (78.0-98.0); Platelet Count 293 thou/uL (130-400); RBC Distribution Width 12.5 % (11.5-14.5); Red Blood Cell (RBC) Count 4.39 mill/uL (4.70-6.10); White Blood Cell (WBC) Count 15.2 thou/uL (4.8-10.8)
[2021-03-16 04:58] LABS: Magnesium 2.4 mg/dL (1.6-2.6); Phosphorus 3.2 mg/dL (2.3-4.7)
[2021-03-16] MEDS: MEROPENEM 1 GM/50 ML 1 GM in Premix Bag 1 BAG IVPB SCH ×2 (05:29→13:56)
[2021-03-16] MEDS: Lorazepam 2 MG/ML VIAL SLOW IVP PRN ×5 (06:15→21:21)
[2021-03-16] MEDS: Aspirin Chewable 81 MG TAB PER TUBE SCH (07:31)
[2021-03-16] MEDS: Enoxaparin Sodium 40 MG/0.4 ML SYRINGE SC SCH ×2 (07:31→20:46)
[2021-03-16] MEDS: Ascorbic Acid 500 mg Chewable Tablet PO SCH (07:31)
[2021-03-16] MEDS: Cholecalciferol (Vitamin D3) 400 UNITS TAB PO SCH (07:31)
[2021-03-16] MEDS: Colchicine 0.6 MG TAB PO SCH ×2 (07:31→20:47)
[2021-03-16] MEDS: Pantoprazole 40 MG GRANULES PACKET PER TUBE SCH (07:31)
[2021-03-16] MEDS: Dexamethasone 4 mg/ml Vial SLOW IVP SCH (07:32)
[2021-03-16] MEDS: Zinc Sulfate 220 MG CAP PO SCH (07:33)
[2021-03-16 07:45] LABS: Actual Bicarbonate (HCO3a) 24.8 mEq/L (22-28); CO2 Tension 33.3 mmHg (35.0-45.0); Calcium, Ionized (arterial) 1.14 mmol/L (1.12-1.30); Carboxyhemoglobin (COHb) 0.6 gm% (0.0-3.0); Hemoglobin (Hb) 14.2 g/dL (14.0-18.0); O2 Tension (PaO2), arterial 79.1 mmHg (80.0-100.0); Potassium - ABG Lab 3.53 mmol/L (3.70-5.30); pH, Arterial 7.49 (7.35-7.45)
[2021-03-16 07:47] LABS: Puncture Site RRA
[2021-03-16 07:48] LABS: ALV-art Gradient 164.475 mmHg (0-20)
[2021-03-16] MEDS: Polyethylene Glycol 3350 17 GM Packet PER TUBE SCH (09:13)
[2021-03-16] MEDS: Senokot S 8.6-50 MG TAB PO SCH ×2 (09:13→20:47)
[2021-03-16] MEDS ORDERED: Fentanyl CADD 100 ML ONE (11:29)
[2021-03-16] MEDS: Insulin Regular 300 UNITS/3 ML VIAL SC PRN ×2 (11:55→15:42)
[2021-03-16] MEDS: Fentanyl CADD 100 ML IV SCH (11:56)
[2021-03-16 20:06] LABS: Vancomycin, Trough 10.8 ug/mL
[2021-03-16] MEDS: Lantus 1000 UNITS/10 ML VIAL SC SCH (20:47)
[2021-03-17] MEDS ORDERED: Fentanyl CADD 100 ML ONE ×2 (01:26→14:07)
[2021-03-17] MEDS: Fentanyl CADD 100 ML IV SCH ×2 (01:27→14:15)
[2021-03-17] MEDS: Propofol 1,000 MG/100 ML VIAL IV PRN ×7 (01:28→21:29)
[2021-03-17] MEDS: Dexmedetomidine 1,000 MCG in Sodium Chloride 0.9% 250 ML 240 ML IVPB PRN ×4 (01:58→18:00)
[2021-03-17 04:21] LABS: #Eosinphils 0.1 thou/uL (0.0-0.7); #Lymphocytes 1.1 thou/uL (1.20-3.40); #Monocytes 1.2 thou/uL (0.11-0.59); #Neutrophils 13.1 thou/uL (1.40-6.50); %Basophils 0.1 % (0.0-1.0); %Eosinophils 0.8 % (0.0-10.0); %Monocytes 7.9 % (0.0-10.0); %Neutrophils 84.2 % (42.0-75.0); Hemoglobin 12.3 g/dL (14.0-18.0); Mean Corpuscular HGB CONC 34.7 g/dL (32.0-36.0); Mean Corpuscular Hemoglobin 32.4 pg (27.0-31.0); Mean Corpuscular Volume 93.5 fL (78.0-98.0); Mean Platelet Volume 8.3 fL (7.4-10.4); Platelet Count 233 thou/uL (130-400); RBC Distribution Width 12.3 % (11.5-14.5); Red Blood Cell (RBC) Count 3.79 mill/uL (4.70-6.10); White Blood Cell (WBC) Count 15.5 thou/uL (4.8-10.8)
[2021-03-17 04:43] LABS: Anion Gap 11 mmol/L (10-20); BUN (Urea Nitrogen) 20 mg/dL (8.9-20.6); Calc. Creatinine Clearance 366 mL/min (70-130); Calcium 8.1 mg/dL (7.8-10.44); Carbon Dioxide 24 mmol/L (22-29); Chloride 106 mmol/L (98-107); Glucose 107 mg/dL (70-105); Magnesium 2.3 mg/dL (1.6-2.6); Phosphorus 3.2 mg/dL (2.3-4.7); Potassium 3.7 mmol/L (3.5-5.1); Sodium 137 mmol/L (136-145)
[2021-03-17] MEDS: Dexamethasone 4 mg/ml Vial SLOW IVP SCH (08:38)
[2021-03-17] MEDS: Polyethylene Glycol 3350 17 GM Packet PER TUBE SCH (08:38)
[2021-03-17] MEDS: Pantoprazole 40 MG GRANULES PACKET PER TUBE SCH (08:38)
[2021-03-17] MEDS: Cholecalciferol (Vitamin D3) 400 UNITS TAB PO SCH (08:38)
[2021-03-17] MEDS: Aspirin Chewable 81 MG TAB PER TUBE SCH (08:38)
[2021-03-17] MEDS: Enoxaparin Sodium 40 MG/0.4 ML SYRINGE SC SCH ×2 (08:38→21:30)
[2021-03-17] MEDS: Colchicine 0.6 MG TAB PO SCH ×2 (08:39→21:30)
[2021-03-17] MEDS: Senokot S 8.6-50 MG TAB PO SCH ×2 (08:39→21:30)
[2021-03-17] MEDS: Ascorbic Acid 500 mg Chewable Tablet PO SCH (08:39)
[2021-03-17] MEDS: Zinc Sulfate 220 MG CAP PO SCH (08:39)
[2021-03-17] MEDS ORDERED: Furosemide 20 MG/2 ML VIAL SLOW IVP SCH (10:30)
[2021-03-17] MEDS: Lorazepam 2 MG/ML VIAL SLOW IVP PRN ×2 (14:15→18:00)
[2021-03-17] MEDS: Lantus 1000 UNITS/10 ML VIAL SC SCH (21:30)
[2021-03-18] MEDS: Dexmedetomidine 1,000 MCG in Sodium Chloride 0.9% 250 ML 240 ML IVPB PRN ×4 (00:56→21:42)
[2021-03-18] MEDS: Propofol 1,000 MG/100 ML VIAL IV PRN ×3 (00:56→06:38)
[2021-03-18] MEDS: Fentanyl CADD 100 ML IV SCH (03:34)
[2021-03-18 04:54] LABS: #Eosinphils 0.1 thou/uL (0.0-0.7); #Lymphocytes 1.1 thou/uL (1.20-3.40); #Monocytes 0.7 thou/uL (0.11-0.59); #Neutrophils 11.1 thou/uL (1.40-6.50); %Basophils 0.1 % (0.0-1.0); %Eosinophils 0.5 % (0.0-10.0); %Lymphocytes 8.5 % (21.0-51.0); %Monocytes 5.1 % (0.0-10.0); %Neutrophils 85.8 % (42.0-75.0); Hemoglobin 12.3 g/dL (14.0-18.0); Mean Corpuscular HGB CONC 34.2 g/dL (32.0-36.0); Mean Corpuscular Volume 93.4 fL (78.0-98.0); Mean Platelet Volume 8.4 fL (7.4-10.4); Platelet Count 278 thou/uL (130-400); RBC Distribution Width 12.5 % (11.5-14.5); Red Blood Cell (RBC) Count 3.84 mill/uL (4.70-6.10); White Blood Cell (WBC) Count 12.9 thou/uL (4.8-10.8)
[2021-03-18] MEDS ORDERED: Furosemide 20 MG/2 ML VIAL SLOW IVP SCH ×2 (09:00→13:15)
[2021-03-18] MEDS: ALPRAZolam 0.25 MG TAB PO PRN (13:07)
[2021-03-18] MEDS: Ascorbic Acid 500 mg Chewable Tablet PO SCH (13:08)
[2021-03-18] MEDS: Colchicine 0.6 MG TAB PO SCH ×2 (13:09→20:16)
[2021-03-18] MEDS: Cholecalciferol (Vitamin D3) 400 UNITS TAB PO SCH (13:09)
[2021-03-18] MEDS: Enoxaparin Sodium 40 MG/0.4 ML SYRINGE SC SCH ×2 (13:09→20:16)
[2021-03-18] MEDS: Aspirin Chewable 81 MG TAB PER TUBE SCH (13:09)
[2021-03-18] MEDS: Senokot S 8.6-50 MG TAB PO SCH ×2 (13:10→22:11)
[2021-03-18] MEDS: Zinc Sulfate 220 MG CAP PO SCH (13:10)
[2021-03-18] MEDS: Polyethylene Glycol 3350 17 GM Packet PER TUBE SCH (13:10)
[2021-03-18] MEDS: Pantoprazole 40 MG GRANULES PACKET PER TUBE SCH (13:10)
[2021-03-18] MEDS ORDERED: Enoxaparin Sodium 40 MG/0.4 ML SYRINGE SC SCH (13:15)
[2021-03-18] MEDS: Dexamethasone 4 mg/ml Vial SLOW IVP SCH (14:48)
[2021-03-19] MEDS ORDERED: Metoprolol Tartrate 5 MG/5 ML VIAL IVP SCH (02:30)
[2021-03-19] MEDS: ALPRAZolam 0.25 MG TAB PO PRN (06:52)
[2021-03-19] MEDS: Aspirin Chewable 81 MG TAB PER TUBE SCH (08:17)
[2021-03-19] MEDS: Cholecalciferol (Vitamin D3) 400 UNITS TAB PO SCH (08:17)
[2021-03-19] MEDS: Enoxaparin Sodium 40 MG/0.4 ML SYRINGE SC SCH ×2 (08:17→21:50)
[2021-03-19] MEDS: Ascorbic Acid 500 mg Chewable Tablet PO SCH (08:17)
[2021-03-19] MEDS: Zinc Sulfate 220 MG CAP PO SCH (08:18)
[2021-03-19] MEDS: Senokot S 8.6-50 MG TAB PO SCH (08:49)
[2021-03-19] MEDS: Polyethylene Glycol 3350 17 GM Packet PER TUBE SCH (08:49)
[2021-03-19] MEDS ORDERED: Melatonin 3 MG TAB PO PRN (08:59)
[2021-03-19] MEDS ORDERED: ALPRAZolam 0.25 MG TAB PO PRN (09:12)
[2021-03-19] MEDS ORDERED: Senokot S 8.6-50 MG TAB PO PRN ×2 (09:15→09:20)
[2021-03-19] MEDS ORDERED: Lorazepam 2 MG/ML VIAL ONE ×2 (17:47→17:54)
[2021-03-19 18:05] LABS: #Eosinphils 0.1 thou/uL (0.0-0.7); #Lymphocytes 1.6 thou/uL (1.20-3.40); #Monocytes 1.1 thou/uL (0.11-0.59); #Neutrophils 14.1 thou/uL (1.40-6.50); %Basophils 0.1 % (0.0-1.0); %Eosinophils 0.8 % (0.0-10.0); %Lymphocytes 9.3 % (21.0-51.0); %Monocytes 6.7 % (0.0-10.0); %Neutrophils 83.1 % (42.0-75.0); Hemoglobin 14.3 g/dL (14.0-18.0); Mean Corpuscular HGB CONC 33.2 g/dL (32.0-36.0); Mean Corpuscular Hemoglobin 31.6 pg (27.0-31.0); Mean Corpuscular Volume 94.9 fL (78.0-98.0); Mean Platelet Volume 7.7 fL (7.4-10.4); Platelet Count 391 thou/uL (130-400); RBC Distribution Width 12.7 % (11.5-14.5); Red Blood Cell (RBC) Count 4.52 mill/uL (4.70-6.10)
[2021-03-19] MEDS ORDERED: levETIRAcetam in NS 500 MG in Premix Bag 1 BAG IVPB SCH (18:30)
[2021-03-19] MEDS ORDERED: Lorazepam 2 MG/ML VIAL SLOW IVP SCH (19:00)
[2021-03-19 19:13] LABS: ALT (SGPT) 76 U/L (8-55); AST (SGOT) 21 U/L (5-34); Albumin 3.7 g/dL (3.5-5.0); Alkaline Phosphatase 67 U/L (40-110); Anion Gap 24 mmol/L (10-20); BUN (Urea Nitrogen) 17 mg/dL (8.9-20.6); Bilirubin, Total 1.6 mg/dL (0.2-1.2); Calc. Creatinine Clearance 0 mL/min (70-130); Calcium 9.4 mg/dL (7.8-10.44); Carbon Dioxide 17 mmol/L (22-29); Chloride 102 mmol/L (98-107); Globulin 3.7 g/dL (2.4-3.5); Glucose 128 mg/dL (70-105); Potassium 3.8 mmol/L (3.5-5.1); Protein, Total 7.4 g/dL (6.0-8.3); Sodium 139 mmol/L (136-145)
[2021-03-19 19:19] LABS: Lactic Acid 10.2 mmol/L (0.5-2.2)
[2021-03-19] MEDS ORDERED: Zolpidem Tartrate 5 MG TAB PO PRN (19:31)
[2021-03-20] MEDS ORDERED: Fosphenytoin Sodium 100 MG in Sodium Chloride 0.9% 50 ML IVPB SCH (02:00)
[2021-03-20] MEDS: Lorazepam 2 MG/ML VIAL ONE ×2 (06:20→06:44)
[2021-03-20] MEDS ORDERED: Lorazepam 2 MG/ML VIAL SLOW IVP PRN ×2 (07:32→08:21)
[2021-03-20] MEDS: Zinc Sulfate 220 MG CAP PO SCH (08:05)
[2021-03-20] MEDS: Cholecalciferol (Vitamin D3) 400 UNITS TAB PO SCH (08:05)
[2021-03-20] MEDS: Ascorbic Acid 500 mg Chewable Tablet PO SCH (08:05)
[2021-03-20] MEDS: Enoxaparin Sodium 40 MG/0.4 ML SYRINGE SC SCH ×2 (08:05→20:19)
[2021-03-20] MEDS: Polyethylene Glycol 3350 17 GM Packet PER TUBE SCH (08:05)
[2021-03-20] MEDS: Aspirin Chewable 81 MG TAB PER TUBE SCH (08:05)
[2021-03-20] MEDS ORDERED: Labetalol HCl 100 MG/20 ML VIAL SLOW IVP PRN (08:44)
[2021-03-20] MEDS ORDERED: Simethicone Chewable 80 MG TAB PO PRN (08:50)
[2021-03-20] MEDS: Lactated Ringer's 1,000 ML IV SCH ×2 (08:56→23:00)
[2021-03-20] MEDS ORDERED: levETIRAcetam in NS 500 MG in Premix Bag 1 BAG IVPB SCH ×2 (09:00→10:45)
[2021-03-20 12:21] LABS: Lactic Acid 1.2 mmol/L (0.5-2.2)
[2021-03-20] MEDS: levETIRAcetam in NS 1,000 MG in Premix Bag 1 BAG IVPB SCH (20:18)
[2021-03-21 05:45] LABS: #Basophils 0.1 thou/uL (0.0-0.2); #Eosinphils 0.3 thou/uL (0.0-0.7); #Lymphocytes 0.8 thou/uL (1.20-3.40); #Monocytes 0.8 thou/uL (0.11-0.59); #Neutrophils 7.4 thou/uL (1.40-6.50); %Basophils 0.6 % (0.0-1.0); %Eosinophils 3.2 % (0.0-10.0); %Lymphocytes 8.6 % (21.0-51.0); %Monocytes 8.5 % (0.0-10.0); %Neutrophils 79.1 % (42.0-75.0); Hemoglobin 11.7 g/dL (14.0-18.0); Mean Corpuscular HGB CONC 32.2 g/dL (32.0-36.0); Mean Corpuscular Hemoglobin 30.8 pg (27.0-31.0); Mean Corpuscular Volume 95.8 fL (78.0-98.0); Mean Platelet Volume 6.8 fL (7.4-10.4); Platelet Count 299 thou/uL (130-400); RBC Distribution Width 12.6 % (11.5-14.5); Red Blood Cell (RBC) Count 3.79 mill/uL (4.70-6.10); White Blood Cell (WBC) Count 9.3 thou/uL (4.8-10.8)
[2021-03-21 06:07] LABS: Lactic Acid 0.6 mmol/L (0.5-2.2)
[2021-03-21 06:11] LABS: ALT (SGPT) 69 U/L (8-55); AST (SGOT) 23 U/L (5-34); Albumin 3.1 g/dL (3.5-5.0); Alkaline Phosphatase 49 U/L (40-110); Anion Gap 10 mmol/L (10-20); BUN (Urea Nitrogen) 13 mg/dL (8.9-20.6); Bilirubin, Total 0.9 mg/dL (0.2-1.2); Calc. Creatinine Clearance 0 mL/min (70-130); Calcium 8.6 mg/dL (7.8-10.44); Carbon Dioxide 31 mmol/L (22-29); Chloride 102 mmol/L (98-107); Globulin 2.9 g/dL (2.4-3.5); Glucose 108 mg/dL (70-105); Potassium 3.7 mmol/L (3.5-5.1); Sodium 139 mmol/L (136-145)
[2021-03-21 06:31] VITALS: BMI 49.4
[2021-03-21] MEDS: Aspirin Chewable 81 MG TAB PER TUBE SCH (08:31)
[2021-03-21] MEDS: Zinc Sulfate 220 MG CAP PO SCH (08:31)
[2021-03-21] MEDS: Enoxaparin Sodium 40 MG/0.4 ML SYRINGE SC SCH ×2 (08:31→21:31)
[2021-03-21] MEDS: levETIRAcetam in NS 1,000 MG in Premix Bag 1 BAG IVPB SCH ×2 (08:31→21:32)
[2021-03-21] MEDS: Polyethylene Glycol 3350 17 GM Packet PER TUBE SCH (08:32)
[2021-03-21] MEDS: Lactated Ringer's 1,000 ML IV SCH (12:50)
[2021-03-22 06:07] LABS: #Eosinphils 0.3 thou/uL (0.0-0.7); #Lymphocytes 0.8 thou/uL (1.20-3.40); #Neutrophils 7.4 thou/uL (1.40-6.50); %Basophils 0.3 % (0.0-1.0); %Eosinophils 3.4 % (0.0-10.0); %Lymphocytes 8.4 % (21.0-51.0); %Monocytes 10.5 % (0.0-10.0); %Neutrophils 77.4 % (42.0-75.0); Hemoglobin 10.9 g/dL (14.0-18.0); Mean Corpuscular HGB CONC 32.7 g/dL (32.0-36.0); Mean Corpuscular Hemoglobin 31.5 pg (27.0-31.0); Mean Corpuscular Volume 96.3 fL (78.0-98.0); Mean Platelet Volume 7.2 fL (7.4-10.4); Platelet Count 280 thou/uL (130-400); RBC Distribution Width 12.4 % (11.5-14.5); Red Blood Cell (RBC) Count 3.45 mill/uL (4.70-6.10); White Blood Cell (WBC) Count 9.6 thou/uL (4.8-10.8)
[2021-03-22 06:31] LABS: ALT (SGPT) 72 U/L (8-55); AST (SGOT) 18 U/L (5-34); Alkaline Phosphatase 56 U/L (40-110); Anion Gap 12 mmol/L (10-20); BUN (Urea Nitrogen) 14 mg/dL (8.9-20.6); Bilirubin, Total 0.6 mg/dL (0.2-1.2); Calc. Creatinine Clearance 297 mL/min (70-130); Calcium 8.7 mg/dL (7.8-10.44); Carbon Dioxide 29 mmol/L (22-29); Chloride 103 mmol/L (98-107); Globulin 2.8 g/dL (2.4-3.5); Glucose 113 mg/dL (70-105); Potassium 3.5 mmol/L (3.5-5.1); Protein, Total 5.8 g/dL (6.0-8.3); Sodium 140 mmol/L (136-145)
[2021-03-22] MEDS: Aspirin Chewable 81 MG TAB PER TUBE SCH (08:18)
[2021-03-22] MEDS: levETIRAcetam 500 MG TAB PO SCH ×2 (08:18→19:50)
[2021-03-22] MEDS: Enoxaparin Sodium 40 MG/0.4 ML SYRINGE SC SCH ×2 (08:18→19:50)
[2021-03-22] MEDS: Zinc Sulfate 220 MG CAP PO SCH (08:18)
[2021-03-22] MEDS: Polyethylene Glycol 3350 17 GM Packet PER TUBE SCH (08:19)
[2021-03-23 08:53] VITALS: BP 121/73; TEMP 98.1
[2021-03-23] MEDS: levETIRAcetam 500 MG TAB PO SCH (08:56)
[2021-03-23] MEDS: Aspirin Chewable 81 MG TAB PER TUBE SCH (08:56)
[2021-03-23] MEDS: Zinc Sulfate 220 MG CAP PO SCH (08:56)
[2021-03-23] MEDS: Enoxaparin Sodium 40 MG/0.4 ML SYRINGE SC SCH (08:56)
[2021-03-23] MEDS: Polyethylene Glycol 3350 17 GM Packet PER TUBE SCH (10:49)
== END 2021-03-23 14:11 | disposition home or self-care (01) | DRG 870 ==
LOC: ERS 00:54 → T4-B 02:48 → CCU 03-07 02:21 → T4-B 03-21 16:44
PROVIDERS: ADMIT Student in an Organized Health Care Education/Training Program; ATTEND Internal Medicine
PROC: XW033E5 Introduction of Remdesivir Anti-infective into Peripheral Vein, Percutaneous Approach, New Technology Group 5 (ICD-10-PCS; 2021-03-06)
PROC: 8E0ZXY6 Isolation (ICD-10-PCS; 2021-03-06)
PROC: 5A1955Z Respiratory Ventilation, Greater than 96 Consecutive Hours (ICD-10-PCS; principal; 2021-03-07)
PROC: 5A09357 Assistance with Respiratory Ventilation, Less than 24 Consecutive Hours, Continuous Positive Airway Pressure (ICD-10-PCS; 2021-03-07)
PROC: 0BH17EZ Insertion of Endotracheal Airway into Trachea, Via Natural or Artificial Opening (ICD-10-PCS; 2021-03-07)
PROC: 0BH18EZ Insertion of Endotracheal Airway into Trachea, Via Natural or Artificial Opening Endoscopic (ICD-10-PCS; 2021-03-10)
DX: A41.89 Other specified sepsis (principal); U07.1 COVID-19; J12.82 Pneumonia due to coronavirus disease 2019; J80 Acute respiratory distress syndrome; Z68.42 Body mass index [BMI] 45.0-49.9, adult; E66.01 Morbid (severe) obesity due to excess calories; I10 Essential (primary) hypertension; E11.9 Type 2 diabetes mellitus without complications; G40.409 Other generalized epilepsy and epileptic syndromes, not intractable, without status epilepticus; Z78.1 Physical restraint status
CPT/HCPCS: 36415; 36416; 36600; 70450; 71045; 71275; 80048; 80053; 80202; 82728; 82805; 83036; 83605; 83735; 84100; 84145; 84146; 84478; 85025; 85379; 86140; 87040; 87149; 87449; 87497; 94002; 94003; 94660; C9113; J0360; J1100; J1650; J1815; J1940; J1953; J2060; J2185; J2704; J3010; J3370; J3490; J7050; J7120; Q9967